=== PATIENT | male | born 1980 | race Caucasian/White ===

== ENCOUNTER 2017-11-09 11:37 | Emergency (ER) | payer OTHER, SELFPAY ==
[2017-11-09 11:51] VITALS: BP 148/86; PULSE 80; RESP 20; TEMP 36.8; O2SAT 97; BMI 30.3
[2017-11-09 12:05] VITALS: PULSE 90; RESP 20; TEMP 36.9; O2SAT 98; BMI 30.3
--- NOTE | 2017-11-09 12:13 | CT_ITS ---
CT abdomen pelvis wo con CLINICAL INDICATION: Right lower quadrant pain ITS.REASON: abdominal pain ORDERING PHYSICIAN: Young Morrell PATIENT AGE: 37 years COMPARISON: None TECHNIQUE: Axial images obtained with sagittal and coronal reformats. PROCEDURE: Oral Contrast: None IV Contrast: None . FINDINGS: The lung bases are clear. The liver, gallbladder, spleen, adrenal glands, and pancreas have an unremarkable unenhanced CT appearance. There are punctate bilateral renal calculi measuring up to 3 mm in the lower pole on the right and 2 mm in the lower pole on the left. No hydronephrosis. No ureteral calculi. Small cortical cyst projects off the lower pole the right kidney at 11 mm. Unremarkable appendix. No intestinal obstruction or free air. No evidence of diverticulitis. The urinary bladder slightly distended. No stones. There is a small right inguinal hernia which contains at. There is a small irregular area of increased soft tissue density in the lower abdominal region anteriorly 5 7-m inferior to the level the umbilicus. This area measures approximately 2 cm and has a somewhat irregular appearance with some minimal stranding of the fat. Etiology of this is uncertain. This does not have a typical appearance for an abscess or diverticulitis. No acute bony anomalies. IMPRESSION: 1. No evidence of appendicitis or obstructing ureteral calculus. 2. Nonobstructing punctate bilateral renal calculi. 3. Small focal mesenteric opacity in the lower abdomen anteriorly very slightly toward the right and may be related to intraperitoneal focal fat infarction. Suggest follow-up with contrast if symptoms persist. 3. Small right internal hernia containing fat
[2017-11-09 12:32] LABS: Basophils % 0.2 % (0.1-2.0); Eosinophils # 0.1 K/mm3 (0.0-0.4); Eosinophils % 0.8 % (0.1-12.0); Hematocrit 48.7 % (42.0-52.0); Hemoglobin 16.1 g/dL (14.1-18.0); Lymphocytes # 2.3 K/mm3 (0.7-4.5); Lymphocytes % 28.7 K/mm3 (10-50); Mean Corpuscular Hemoglobin 29.3 pg (27.0-31.2); Mean Corpuscular Volume 88.8 fl (80-94); Mean Platelet Volume 7.3 fl (7.4-10.4); Monocytes # 0.6 K/mm3 (0.1-1.0); Monocytes % 7.2 % (1.7-9.3); Neutrophils % 63.3 % (37.0-80.0); Platelet Count 377 K/mm3 (142-424); Red Blood Count 5.48 M/mm3 (4.60-6.20); Red Cell Distribution Width 13.6 % (11.5-17.5)
[2017-11-09 12:58] LABS: Alanine Aminotransferase 24 U/L (12-78); Albumin Level 4.9 gm/dL (3.4-5.0); Albumin/Globulin Ratio 1.3 (1.1-1.8); Alkaline Phosphatase 35 U/L (46-116); Amylase 60 U/L (25-125); Anion Gap 16.9 mEq/L (5-15); Aspartate Amino Transferase 18 U/L (15-37); Bilirubin,Total 0.5 mg/dL (0.2-1.0); Blood Urea Nitrogen 8 mg/dL (7-18); Calcium 9.7 mg/dL (8.5-10.1); Carbon Dioxide 26 mmol/L (21.0-32.0); Chloride 104 mmol/L (98-107); Creatinine Clearance Estimated 144 mL/min (0-300); Creatinine,Serum 1.04 mg/dL (0.70-1.30); Estimated Glomerular Filt Rate 80 ml/min (>60); GFR (African American) 97 ML/MIN (>60); Globulin 3.7 gm/dl (1.3-3.2); Glucose 110 mg/dL (74-106); Lipase 104 u/L (73-393); Sodium 144 mmol/L (136-145); Total Protein,Serum 8.6 gm/dL (6.4-8.2)
[2017-11-09 13:00] LABS: Potassium 2.9 mmoL/L (3.5-5.1)
[2017-11-09 13:15] LABS: Microscopic, Urine URINE MICROSCOPIC (MICROSCOPIC)
[2017-11-09 13:18] LABS: Appearance,Urine CLEAR (Clear); Bilirubin,Urine Negative (Negative); Blood, Urine TRACE-L (Negative); Color,Urine YELLOW (Yellow); Glucose,Urine (UA) Negative (Negative); Ketones,Urine 1+ (Negative); Leukocyte Esterase,Urine Negative (Negative); Nitrate,Urine Negative (Negative); PH,Urine 6.5 (5.0-8.5); Protein,Urine Negative (Negative); Urobilinogen,Urine 0.2 EU/dl (0.2)
--- NOTE | 2017-11-09 13:44 | HMH.EDABDPAI ---
ED Disposition Clinical Impression: Epiploic appendagitis, Right inguinal hernia Disposition: Home, Self-Care Condition on Discharge: Good Instructions: Groin Hernia -- Adult, DI for Acute Abdomen Additional Instructions: Please return to the emergency room in 24 hours if pain not better, for additional studies (CT contrast abdomen and pelvis with oral and IV contrast). Follow-up with Dr. Arie Carpenter regarding your right inguinal hernia and the epiploic appendagitis, within 3-5 days, for mandatory outpatient workup. Please call today in order to schedule, upon discharge from this ER!!! Prescriptions: Hydrocodone/Acetaminophen [Lortab 10/325mg tablet] 1 tab PO Q6HP PRN #10 tab PRN Reason: pain Referrals: Arie Carpenter MD [Staff Physician] - Time of Disposition: 13:45 - Critical Care Critical Care Time: No Attestation: On 11/09/17, the high probability of a clinically significant, sudden or life threatening deterioration of the following system(s) required my full and direct attention, intervention and personal management. The time I documented below is in addition to time spent performing reported procedures but includes the following listed in this critical care notation. Medical Decision Making - Medical Records Medical records reviewed: Yes: I reviewed the patient's medical records. Vital Signs: 11/09/17 11:51 11/09/17 12:05 11/09/17 14:09 Temperature 98.2 F 98.4 F 98.8 F Temperature Source Temporal Artery Scan Oral Pulse Rate 88 Pulse Rate [Left Brachial] 80 90 Respiratory Rate 20 20 22 Blood Pressure 146/89 Blood Pressure [Left Arm] 148/86 Blood Pressure Mean [Left Arm] 106 Blood Pressure Source [Left Arm] Automatic Cuff Blood Pressure Position [Left Arm] Sitting 02 Sat by Pulse Oximetry 97 98 Oxygen Delivery Method Room Air Room Air - Lab Data Lab results reviewed: Yes: I reviewed the patient's lab results. Lab Results 11/09/17 12:18: WBC 8.0, RBC 5.48, Hgb 16.1, Hct 48.7, MCV 88.8, MCH 29.3, MCHC 33.0, RDW 13.6, Plt Count 377, MPV 7.3 L, Neut % (Auto) 63.3, Lymph % (Auto) 28.7, [place] % (Auto) 7.2, Eos % (Auto) 0.8, Baso % (Auto) 0.2, Neut # (Auto) 5.0, Lymph # (Auto) 2.3, [place] # (Auto) 0.6, Eos # (Auto) 0.1, Baso # (Auto) 0.0 11/09/17 12:18: Sodium 144, Potassium 2.9 L*, Chloride 104, Carbon Dioxide 26, Anion Gap 16.9 H, BUN 8, Creatinine 1.04, Estimated Creat Clear 144, Estimated GFR 80, Est GFR ( Amer) 97, Glucose 110 H, Calcium 9.7, Total Bilirubin 0.5, AST 18, ALT 24, Alkaline Phosphatase 35 L, Total Protein 8.6 H, Albumin 4.9, Globulin 3.7 H, Albumin/Globulin Ratio 1.3, Amylase 60, Lipase 104 11/09/17 13:10: Urine Color Yellow, Urine Appearance Clear, Urine pH 6.5, Ur Specific [place] 1.010, Urine Protein Negative, Urine Glucose (UA) Negative, Urine Ketones 1+, Urine Blood Trace-l, Urine Nitrate Negative, Urine Bilirubin Negative, Urine Urobilinogen 0.2, Ur Leukocyte Esterase Negative, Urine RBC Occasional, Urine WBC 3-5, Ur Squamous Epith Cells Occasional, Urine Bacteria 1+, Urine Mucus 2+ Result diagrams: 11/09/17 12:18 11/09/17 12:18 Orders (Tests/Meds): ED MEDICATIONS Discontinued Medications Generic Name Dose Route Start Last Admin Trade Name Freq PRN Reason Stop Dose Admin Hydromorphone HCl 1 mg 11/09/17 12:13 11/09/17 12:18 Dilaudid 4mg/Ml Syringe IV 11/09/17 12:14 1 mg ONCE ONE Administration Hydromorphone HCl 1 mg 11/09/17 12:27 11/09/17 12:59 Dilaudid 2mg/Ml Syringe IV 11/09/17 12:28 1 mg ONCE ONE Administration Hydromorphone HCl 2 mg 11/09/17 13:55 11/09/17 14:05 Dilaudid 2mg/Ml Syringe IV 11/09/17 13:56 2 mg ONCE ONE Administration Sodium Chloride 1,000 mls @ 999 mls/hr 11/09/17 12:15 11/09/17 12:18 Sod Chlor 0.9% 1000ml Bag IV 11/09/17 13:15 999 mls/hr .Q1H1M RADHA Administration Ondansetron HCl 4 mg 11/09/17 12:13 11/09/17 12:18 Zofran 4mg/2ml Vial IV 11/09/17 12:14 4 mg ONCE ONE
--- NOTE | 2017-11-09 13:50 | ED_ITS ---
ED Disposition Clinical Impression: Epiploic appendagitis, Right inguinal hernia Disposition: Home, Self-Care Condition on Discharge: Good Instructions: Groin Hernia -- Adult, DI for Acute Abdomen Additional Instructions: Please return to the emergency room in 24 hours if pain not better, for additional studies (CT contrast abdomen and pelvis with oral and IV contrast). Follow-up with Dr. Arie Carpenter regarding your right inguinal hernia and the epiploic appendagitis, within 3-5 days, for mandatory outpatient workup. Please call today in order to schedule, upon discharge from this ER!!! Prescriptions: Hydrocodone/Acetaminophen [Lortab 10/325mg tablet] 1 tab PO Q6HP PRN #10 tab PRN Reason: pain Referrals: Arie Carpenter MD [Staff Physician] - Time of Disposition: 13:45 - Critical Care Critical Care Time: No Attestation: On 11/09/17, the high probability of a clinically significant, sudden or life threatening deterioration of the following system(s) required my full and direct attention, intervention and personal management. The time I documented below is in addition to time spent performing reported procedures but includes the following listed in this critical care notation. Medical Decision Making - Medical Records Medical records reviewed: Yes: I reviewed the patient's medical records. Vital Signs: 11/09/17 11:51 11/09/17 12:05 11/09/17 14:09 Temperature 98.2 F 98.4 F 98.8 F Temperature Source Temporal Artery Scan Oral Pulse Rate 88 Pulse Rate [Left Brachial] 80 90 Respiratory Rate 20 20 22 Blood Pressure 146/89 Blood Pressure [Left Arm] 148/86 Blood Pressure Mean [Left Arm] 106 Blood Pressure Source [Left Arm] Automatic Cuff Blood Pressure Position [Left Arm] Sitting 02 Sat by Pulse Oximetry 97 98 Oxygen Delivery Method Room Air Room Air - Lab Data Lab results reviewed: Yes: I reviewed the patient's lab results. Lab Results 11/09/17 12:18: WBC 8.0, RBC 5.48, Hgb 16.1, Hct 48.7, MCV 88.8, MCH 29.3, MCHC 33.0, RDW 13.6, Plt Count 377, MPV 7.3 L, Neut % (Auto) 63.3, Lymph % (Auto) 28.7, [place] % (Auto) 7.2, Eos % (Auto) 0.8, Baso % (Auto) 0.2, Neut # (Auto) 5.0 , Lymph # (Auto) 2.3, [place] # (Auto) 0.6, Eos # (Auto) 0.1, Baso # (Auto) 0.0 11/09/17 12:18: Sodium 144, Potassium 2.9 L*, Chloride 104, Carbon Dioxide 26, Anion Gap 16.9 H, BUN 8, Creatinine 1.04, Estimated Creat Clear 144, Estimated GFR 80, Est GFR ( Amer) 97, Glucose 110 H, Calcium 9.7, Total Bilirubin 0.5, AST 18, ALT 24, Alkaline Phosphatase 35 L, Total Protein 8.6 H, Albumin 4.9 , Globulin 3.7 H, Albumin/Globulin Ratio 1.3, Amylase 60, Lipase 104 11/09/17 13:10: Urine Color Yellow, Urine Appearance Clear, Urine pH 6.5, Ur Specific [place] 1.010, Urine Protein Negative, Urine Glucose (UA) Negative, Urine Ketones 1+, Urine Blood Trace-l, Urine Nitrate Negative, Urine Bilirubin Negative, Urine Urobilinogen 0.2, Ur Leukocyte Esterase Negative, Urine RBC Occasional, Urine WBC 3-5, Ur Squamous Epith Cells Occasional, Urine Bacteria 1+ , Urine Mucus 2+ Result diagrams: 11/09/17 12:18 11/09/17 12:18 Orders (Tests/Meds): ED MEDICATIONS Discontinued Medications Generic Name Dose Route Start Last Admin Trade Name Freq PRN Reason Stop Dose Admin Hydromorphone HCl 1 mg 11/09/17 12:13 11/09/17 12:18 Dilaudid 4mg/Ml Syringe IV 11/09/17 12:14 1 mg ONCE ONE Administration Hydromorpho
[2017-11-09 13:57] LABS: Bacteria,Urine 1+ /lpf; Mucus,Urine 2+ /lpf; RBC,Urine Occasional #/hpf (0-3); Squamous Epithelial Cell,Urine Occasional #/hpf (0-5)
[2017-11-09 14:09] VITALS: BP 146/89; PULSE 88; RESP 22; TEMP 37.1; O2SAT 98
== END 2017-11-09 14:10 | disposition home or self-care (01) ==
LOC: UTC 11:44 → ER 12:05
PROVIDERS: Emergency Medicine; Emergency Provider Nurse Practitioner Family
DX: K63.89 Other specified diseases of intestine (principal); K40.90 Unilateral inguinal hernia, without obstruction or gangrene, not specified as recurrent
CPT/HCPCS: 74176; 80053; 81001; 82150; 83690; 85025; 96365; 96375; 96376; 99282; 99283; J2405

== ENCOUNTER 2017-11-10 12:21 | Emergency (ER) | payer OTHER, SELFPAY ==
[2017-11-10 12:27] VITALS: BP 144/67; PULSE 80; RESP 16; TEMP 36.7; O2SAT 95; BMI 30.3
--- NOTE | 2017-11-10 12:46 | CT_ITS ---
CT abdomen pelvis w con CLINICAL INDICATION: Persistent abdominal pain, right lower quadrant pain radiating to the left side ITS.REASON: abd pain ORDERING PHYSICIAN: Edson Figueroa MD PATIENT AGE: 37 years COMPARISON: 11/09/17 TECHNIQUE: Axial images obtained with sagittal and coronal reformats. PROCEDURE: Oral Contrast: Gastroview IV Contrast: 75 mL's of Isovue-370. FINDINGS: No acute finding lung bases. There is minimal nodularity involving the right lung base laterally and the subpleural region at 6 mm unchanged. Liver, gallbladder, pancreas, and adrenal glands have an unremarkable appearance. Nonobstructing bilateral punctate renal calculi noted as before. No intestinal obstruction or free air. The appendix is unremarkable. No evidence of appendicitis. There remains slight increased soft tissue density in the central aspect of the pelvis anteriorly with minimal infiltration of the fat in this region and may represent intraperitoneal focal fatty infarction versus small lymph nodes. This is not significantly changed. No evidence of diverticulitis. Scattered diverticula are present in the descending and sigmoid colon. Small right internal hernia containing fat once again noted. IMPRESSION: 1. Overall no significant change compared to the unenhanced exam of 11/19/2017. 2. No change small nodular density in the central pelvic region anteriorly which may be due to intraperitoneal focal fatty infarction versus small lymph nodes. No abscess. No evidence of appendicitis or obstructing ureteral calculus. 3. No change small right inguinal hernia containing fat
--- NOTE | 2017-11-10 13:10 | HMH.EDGENADL ---
ED Disposition Clinical Impression: Right inguinal hernia Abdominal pain Qualifiers: Abdominal location: unspecified location Qualified Code(s): R10.9 - Unspecified abdominal pain Disposition: Home, Self-Care Condition on Discharge: Good Instructions: DI for Acute Abdomen Additional Instructions: Continue previous discharge instructions. Follow-up with surgeon as previously instructed. You are being provided with a list of physicians available for follow-up of your condition. Please call a physician on this list to arrange a follow-up appointment as soon as possible. Additional instructions for ABDOMINAL PAIN: See your physician as soon as possible for further evaluation. Return immediately if worsening abdominal pain, vomiting, shortness of breath, fever, vomiting of blood or abdominal distention. - Critical Care Critical Care Time: No Attestation: On 11/10/17, the high probability of a clinically significant, sudden or life threatening deterioration of the following system(s) required my full and direct attention, intervention and personal management. The time I documented below is in addition to time spent performing reported procedures but includes the following listed in this critical care notation. Medical Decision Making Vital Signs: 11/10/17 12:27 Temperature 98.1 F Temperature Source Oral Pulse Rate [Right] 80 Respiratory Rate 16 Blood Pressure [Right Arm] 144/67 Blood Pressure Mean [Right Arm] 92 Blood Pressure Source [Right Arm] Automatic Cuff Blood Pressure Position [Right Arm] Sitting 02 Sat by Pulse Oximetry 95 Oxygen Delivery Method Room Air - Lab Data Lab Results 11/10/17 13:40: WBC 5.2 D, RBC 5.17, Hgb 15.0, Hct 46.0, MCV 88.8, MCH 28.9, MCHC 32.5, RDW 13.8, Plt Count 312, MPV 7.3 L, Neut % (Auto) 47.9, Lymph % (Auto) 42.1, [place] % (Auto) 8.6, Eos % (Auto) 1.0, Baso % (Auto) 0.4, Neut # (Auto) 2.5, Lymph # (Auto) 2.2, [place] # (Auto) 0.5, Eos # (Auto) 0.1, Baso # (Auto) 0.0 11/10/17 13:40: Sodium 142, Potassium 3.4 L, Chloride 105, Carbon Dioxide 26, Anion Gap 14.4, BUN 8, Creatinine 0.92, Estimated Creat Clear 162, Estimated GFR 93, Est GFR ( Amer) 112, Glucose 103, Calcium 9.1, Total Bilirubin 0.4, AST 18, ALT 31 D, Alkaline Phosphatase 30 L, Total Protein 7.5, Albumin 4.1 D, Globulin 3.4 H, Albumin/Globulin Ratio 1.2 Result diagrams: 11/10/17 13:40 11/10/17 13:40 Orders (Tests/Meds): ED MEDICATIONS Discontinued Medications Generic Name Dose Route Start Last Admin Trade Name Frerichie PRN Reason Stop Dose Admin Diatrizoate Meglum/Diatrizoate Sod 30 ml 11/10/17 12:46 11/10/17 12:50 Gastrografin 66%-10% 30ml PO 11/10/17 12:47 30 ml ONCE ONE Administration Hydromorphone HCl 1 mg 11/10/17 13:16 11/10/17 13:36 Dilaudid 2mg/Ml Syringe IV 11/10/17 13:17 Not Given ONCE ONE Ketorolac Tromethamine 30 mg 11/10/17 13:16 11/10/17 13:31 Toradol 30mg/Ml Vial IV 11/10/17 13:17 30 mg ONCE ONE Administration Morphine Sulfate 4 mg 11/10/17 13:33 11/10/17 13:35 Morphine 4mg/Ml Syringe IV 11/10/17 13:34 4 mg ONCE ONE Administration Ondansetron HCl 4 mg 11/10/17 13:16 11/10/17 13:31 Zofran 4mg/2ml Vial IV 11/10/17 13:17 4 mg ONCE ONE Administration Sodium Chloride 1,000 ml 11/10/17 13:16 11/10/17 13:31 Sod Chlor 0.9% 1000ml Bag IV 11/10/17 13:17 1,000 ml BOLUS ONE Administration ORDERS Category Date Time Status Chest XR 2 view (NOT portable) [XR chest 2V] Stat Exams 11/10/17 14:27 Ordered - CT Data CT Scan: Abdomen, Pelvis Time Received: 15:34 Findings Narrative: No significant change from noncontrast study yesterday. Small inguinal hernia containing fat. - [place] Inquiry Pt receiving controlled substance: Yes [place] was queried for this patient: Yes Reference #:: [id number] Risks and benefits of using a controlled substance: were not discussed with pt by me (Already on opiates) C
[2017-11-10 13:52] LABS: Basophils % 0.4 % (0.1-2.0); Eosinophils # 0.1 K/mm3 (0.0-0.4); Lymphocytes # 2.2 K/mm3 (0.7-4.5); Lymphocytes % 42.1 K/mm3 (10-50); Mean Corpuscular HGB Conc 32.5 g/dL (31.8-35.4); Mean Corpuscular Hemoglobin 28.9 pg (27.0-31.2); Mean Corpuscular Volume 88.8 fl (80-94); Mean Platelet Volume 7.3 fl (7.4-10.4); Monocytes # 0.5 K/mm3 (0.1-1.0); Monocytes % 8.6 % (1.7-9.3); Neutrophils # 2.5 K/mm3 (1.8-7.8); Neutrophils % 47.9 % (37.0-80.0); Platelet Count 312 K/mm3 (142-424); Red Blood Count 5.17 M/mm3 (4.60-6.20); Red Cell Distribution Width 13.8 % (11.5-17.5); White Blood Count 5.2 K/mm3 (4.8-10.8)
[2017-11-10 14:04] LABS: Alanine Aminotransferase 31 U/L (12-78); Albumin Level 4.1 gm/dL (3.4-5.0); Albumin/Globulin Ratio 1.2 (1.1-1.8); Alkaline Phosphatase 30 U/L (46-116); Anion Gap 14.4 mEq/L (5-15); Aspartate Amino Transferase 18 U/L (15-37); Bilirubin,Total 0.4 mg/dL (0.2-1.0); Blood Urea Nitrogen 8 mg/dL (7-18); Calcium 9.1 mg/dL (8.5-10.1); Carbon Dioxide 26 mmol/L (21.0-32.0); Chloride 105 mmol/L (98-107); Creatinine Clearance Estimated 162 mL/min (0-300); Creatinine,Serum 0.92 mg/dL (0.70-1.30); Estimated Glomerular Filt Rate 93 ml/min (>60); GFR (African American) 112 ML/MIN (>60); Globulin 3.4 gm/dl (1.3-3.2); Glucose 103 mg/dL (74-106); Potassium 3.4 mmoL/L (3.5-5.1); Sodium 142 mmol/L (136-145); Total Protein,Serum 7.5 gm/dL (6.4-8.2)
[2017-11-10 16:17] VITALS: BP 124/85; PULSE 82; RESP 18; TEMP 36.7
== END 2017-11-10 16:17 | disposition home or self-care (01) ==
PROVIDERS: Emergency Provider Emergency Medicine
DX: K40.90 Unilateral inguinal hernia, without obstruction or gangrene, not specified as recurrent (principal); K52.9 Noninfective gastroenteritis and colitis, unspecified
CPT/HCPCS: 74177; 80053; 85025; 96365; 96375; 99281; 99291; J2405

== ENCOUNTER → 2017-11-21 15:16 | Outpatient (CLI) | payer OTHER, SELFPAY ==
[2017-11-21 15:48] LABS: Basophils % 0.5 % (0.1-2.0); Eosinophils % 0.4 % (0.1-12.0); Hematocrit 49.3 % (42.0-52.0); Hemoglobin 15.9 g/dL (14.1-18.0); Lymphocytes # 2.9 K/mm3 (0.7-4.5); Lymphocytes % 38.3 K/mm3 (10-50); Mean Corpuscular HGB Conc 32.2 g/dL (31.8-35.4); Mean Corpuscular Hemoglobin 29.6 pg (27.0-31.2); Mean Corpuscular Volume 91.9 fl (80-94); Mean Platelet Volume 7.4 fl (7.4-10.4); Monocytes # 0.5 K/mm3 (0.1-1.0); Neutrophils # 4.1 K/mm3 (1.8-7.8); Neutrophils % 54.8 % (37.0-80.0); Platelet Count 384 K/mm3 (142-424); Red Blood Count 5.37 M/mm3 (4.60-6.20); Red Cell Distribution Width 13.6 % (11.5-17.5); White Blood Count 7.5 K/mm3 (4.8-10.8)
[2017-11-21 16:51] LABS: Microscopic, Urine URINE MICROSCOPIC (MICROSCOPIC)
[2017-11-21 17:10] LABS: Appearance,Urine CLEAR (Clear); Bilirubin,Urine Negative (Negative); Blood, Urine Negative (Negative); Color,Urine YELLOW (Yellow); Glucose,Urine (UA) Negative (Negative); Ketones,Urine Negative (Negative); Leukocyte Esterase,Urine Negative (Negative); Nitrate,Urine Negative (Negative); PH,Urine 5.5 (5.0-8.5); Protein,Urine Negative (Negative); Specific Gravity, Urine >= 1.030 (1.005-1.030); Urobilinogen,Urine 0.2 EU/dl (0.2)
[2017-11-21 17:22] LABS: RBC,Urine Occasional #/hpf (0-3)
[2017-11-21 18:02] LABS: Anion Gap 16.2 mEq/L (5-15); Blood Urea Nitrogen 16 mg/dL (7-18); Carbon Dioxide 27 mmol/L (21.0-32.0); Chloride 103 mmol/L (98-107); Creatinine,Serum 0.98 mg/dL (0.70-1.30); Estimated Glomerular Filt Rate 86 ml/min (>60); GFR (African American) 104 ML/MIN (>60); Glucose 95 mg/dL (74-106); Potassium 5.2 mmoL/L (3.5-5.1); Sodium 141 mmol/L (136-145)
== END ==
PROVIDERS: Visit Provider Surgery
DX: K40.90 Unilateral inguinal hernia, without obstruction or gangrene, not specified as recurrent (principal); Z01.818 Encounter for other preprocedural examination
CPT/HCPCS: 36415; 80048; 81001; 85025; 93005

== ENCOUNTER 2017-12-05 05:59 | Day surgery (SDC) | payer OTHER, SELFPAY ==
[2017-12-04 15:44] VITALS: BMI 30.9
[2017-12-05] VITALS (13 sets, daily range): BP systolic 118–145; BP diastolic 68–95; PULSE 68–86; RESP 16–18; TEMP 36.3–43; O2SAT 95–98
--- NOTE | 2017-12-05 08:52 | HMH.OPNOTE ---
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 Moderately large indirect defect Operative note:: After informed consent was obtained, the patient was taken to the operating room and placed in the supine position. General anesthesia with laryngeal mask airway was achieved. His abdomen and groin/scrotum were prepped and draped in a sterile fashion. After infiltration with local anesthetic an oblique incision was made in the right groin. Electrocautery was utilized to transect through Sammie's fascia to the level of the external aponeurosis. The external aponeurosis was sharply opened to the level of the external ring utilizing Metzenbaum scissors. The contents of the canal were carefully elevated. Careful dissection revealed severe/dense adhesions throughout the canal with particularly dense adhesions between the vessels/vas deferens and the sac/cremasteric muscles. Careful dissection was utilized to free the hernia sac from surrounding tissue and it was carefully maneuvered back through the internal ring and an extra large Prolene plug was secured in position utilizing Ethibond suture. The overlying Prolene patch was then secured to the shelving edge inferiorly and fascial margin superiorly. The external aponeurosis was reapproximated utilizing running Vicryl suture. Sammie's fascia was reapproximated in the same manner. Skin was closed with 4-0 Monocryl in a running subcuticular fashion. Steri-Strips were applied. The patient's anesthetic agents were reversed and his laryngeal mask airway was removed prior to transfer to recovery. Condition: stable Disposition: PACU Specimens:: None Complications:: No immediate
--- NOTE | 2017-12-05 08:56 | P.OP_ITS ---
Date of procedure: 12/05/17 Pre-op Diagnosis:: Right inguinal hernia Post-op Diagnosis:: Same Procedure performed:: Open repair right inguinal hernia Surgeon:: Arie Carpenter MD Railcar Mechanic(s):: Lee Ann Banda [employer]AB[employer]IC [employer]ILE [employer]CTORY WORKER:: [employer] Anesthesia: LMA Estimated blood loss (mL): 15 Operative findings:: Severe chronic soft tissue thickening and adhesions throughout the canal with particularly dense adhesions of the vas deferens and vessels to hernia sac and cremasteric muscles. Moderately large indirect defect Operative note:: After informed consent was obtained, the patient was taken to the operating room and placed in the supine position. General anesthesia with laryngeal mask airway was achieved. His abdomen and groin/scrotum were prepped and draped in a sterile fashion. After infiltration with local anesthetic an oblique incision was made in the right groin. Electrocautery was utilized to transect through Asmmie's fascia to the level of the external aponeurosis. The external aponeurosis was sharply opened to the level of the external ring utilizing Metzenbaum scissors. The contents of the canal were carefully elevated. Careful dissection revealed severe/dense adhesions throughout the canal with particularly dense adhesions between the vessels/vas deferens and the sac/ cremasteric muscles. Careful dissection was utilized to free the hernia sac from surrounding tissue and it was carefully maneuvered back through the internal ring and an extra large Prolene plug was secured in position utilizing Ethibond suture. The overlying Prolene patch was then secured to the shelving edge inferiorly and fascial margin superiorly. The external aponeurosis was reapproximated utilizing running Vicryl suture. Sammie's fascia was reapproximated in the same manner. Skin was closed with 4-0 Monocryl in a running subcuticular fashion. Steri-Strips were applied. The patient's anesthetic agents were reversed and his laryngeal mask airway was removed prior to transfer to recovery. Condition: stable Disposition: PACU Specimens:: None Complications:: No immediate
--- NOTE | 2017-12-05 09:09 | P.PN_ITS ---
[facility] Anesthesia Record Part I Intake, IV Amount: 1,700 Estimated blood loss (mL): 15 Urine output (mL): 200 Blood Pressure: 143/94 SaO2: 95 Pulse Rate: 82 Respiratory Rate: 16 Temperature: 97.5 F Patient is:: Drowsy, Stable Stable to PACU at:: 09:05
--- NOTE | 2017-12-05 09:09 | P.PN_ITS ---
[facility] Anesthesia Checklist - Patient Identification Patient Identification: Arm Band - Structural Data Admitted From: Home Planned Operative Procedure/s: right inguinal hernia repair Consent for Planned Operative Procedure(s) Verified: Yes Verified Documents: Surgical Consent, History and Physical - NPO Status Verified Time NPO: 00:00 - Additional verifications Anesthesia Reactions: No - Airway Assessment C-Spine Mobility Assessed: Yes (mp2) TMJ Mobility Assessed: Yes Dentition: Good Dentition - Neurological Assessment Level of Consciousness: Awake, Alert - Anesthesia Plan Anesthesia Risk discussed: Yes Anesthesia Plan: Verified ASA Class: II Anesthesia Type: General [facility] Anesthesia HX I have reviewed the patient's past medical history: Yes Medical History: Reports:: Arrhythmia (history of wpw) Denies:: Cancer, Diabetes Mellitus Type 1, Diabetes Mellitus Type 2, Internal Pacemaker, MRSA, Seizures Laterality Cases: Left: Arthroscopy Shoulder, Other Other Surgeries: No: Pacemaker Amputation: No Fractures: No *Family Hx:: Unable to obtain
--- NOTE | 2017-12-05 09:09 | P.PN_ITS ---
[facility] Anesthesia Record Part II Discharge Time: 09:35 Destination: [facility] PACU nurse assessment reviewed?: Yes Patient Condition:: Good Anesthesia Complications:: None
--- NOTE | 2017-12-05 09:09 | HMH.ANESII ---
[facility] Anesthesia Record Part II Discharge Time: 09:35 Destination: [facility] PACU nurse assessment reviewed?: Yes Patient Condition:: Good Anesthesia Complications:: None
--- NOTE | 2017-12-05 10:19 | PC.NURSE ---
pt eating ice chips w/out difficulty.
--- NOTE | 2017-12-05 10:30 | PC.NURSE ---
0930-pt eating ice chips w/out difficulty 0933-detailed report called to JORDEN Peterson 0935-Pt transported to post op via stretcher w/rails up and left in care of JORDEN Peterson w/bed locked in lowest position. VSS. Pt stable.
[2017-12-05 14:16] LABS: Microscopic, Urine URINE MICROSCOPIC (MICROSCOPIC)
[2017-12-05 14:17] LABS: Appearance,Urine CLEAR (Clear); Bilirubin,Urine Negative (Negative); Blood, Urine Negative (Negative); Color,Urine YELLOW (Yellow); Glucose,Urine (UA) Negative (Negative); Ketones,Urine Negative (Negative); Leukocyte Esterase,Urine Negative (Negative); Nitrate,Urine Negative (Negative); Protein,Urine Negative (Negative); Urobilinogen,Urine 0.2 EU/dl (0.2)
[2017-12-05 14:37] LABS: Bacteria,Urine Trace /lpf; RBC,Urine Occasional #/hpf (0-3); Squamous Epithelial Cell,Urine Occasional #/hpf (0-5)
[2017-12-05 14:38] LABS: Mucus,Urine Trace /lpf
== END 2017-12-05 10:30 | disposition home or self-care (01) ==
PROVIDERS: Visit Provider Surgery
PROC: (CPT 49505; principal; 2017-12-05 07:30)
DX: K40.90 Unilateral inguinal hernia, without obstruction or gangrene, not specified as recurrent (principal)
CPT/HCPCS: 49505; 81001; 96374; J0131; J2405